=== PATIENT | female | born 1965 | race Two or more races ===

== ENCOUNTER 2018-09-02 11:20 | Outpatient (CLI) | payer OTHER | END 2018-09-02 11:30 | disposition home or self-care (01) | LOC: MAMO-SONO 11:20 | DX: Z12.31 Encounter for screening mammogram for malignant neoplasm of breast (principal); N60.11 Diffuse cystic mastopathy of right breast; N60.12 Diffuse cystic mastopathy of left breast ==

== ENCOUNTER 2018-09-06 10:56 | Outpatient (CLI) | payer OTHER | END 2018-09-06 11:04 | disposition home or self-care (01) | LOC: RAD 10:56 | DX: M95.8 Other specified acquired deformities of musculoskeletal system (principal) ==

== ENCOUNTER 2018-09-20 13:37 | Outpatient (CLI) | payer OTHER | END 2018-09-20 13:40 | disposition home or self-care (01) | LOC: NUCLEAR 13:37 | DX: M81.0 Age-related osteoporosis without current pathological fracture (principal); Z13.820 Encounter for screening for osteoporosis ==

== ENCOUNTER 2022-02-26 13:18 | Outpatient (CLI) | payer OTHER | END 2022-02-26 13:28 | disposition home or self-care (01) | LOC: PPH VACUNA 13:18 | PROVIDERS: ATTEND Emergency Medicine Pediatric Emergency Medicine | DX: Z23 Encounter for immunization (principal) ==